=== PATIENT | male | born 1940 | race African-American/Black ===

== ENCOUNTER 2025-04-07 03:44 | Emergency (ER) | payer MEDICARE, SELFPAY ==
[~2025-04-07] VITALS: Ht 180.3 cm; Wt 79.2 kg
[2025-04-07 03:49] VITALS: O2SAT 100
[2025-04-07 04:21] LABS: BASOPHILS % 1.1 % (0.0-2.0); EOSINOPHILS % 3.4 % (0.0-5.0); HEMATOCRIT. 39.4 % (42.0-52.0); HEMOGLOBIN. 12.8 g/dL (14.0-18.0); LYMPHOCYTES % 37.2 % (20.0-50.0); MEAN PLATELET VOLUME 9.2 fl (7.4-10.4); MONOCYTES % 10.9 % (2.0-8.0); NEUTROPHILS % 47.4 % (40.0-76.0); PLATELET 123 x1000/uL (130-400); RED BLOOD CELL COUNT 4.86 mill/uL (4.7-6.1); RED CELL DISTRIBUTION WIDTH 13.7 % (11.6-14.6)
[2025-04-07 04:33] LABS: CREATININE 1.2 mg/dL (0.6-1.3); UREA NITROGEN BLOOD 7 mg/dL (9-23)
[2025-04-07 04:34] LABS: TROPONIN I HIGH SENSITIVITY 18 ng/L (3.0-53)
[2025-04-07 06:26] LABS: ASPARTATE AMINOTRANSFERASE 23 IU/L (<34); BILIRUBIN DIRECT 0.1 mg/dL (<=3.0); BILIRUBIN TOTAL 0.4 mg/dL (0.1-1.0); PROTEIN TOTAL 6.5 g/dL (6.0-8.3)
[2025-04-07 07:17] LABS: INR 0.9
[2025-04-07 08:03] LABS: TROPONIN I HIGH SENSITIVITY 20 ng/L (3.0-53)
[2025-04-07] MEDS: IOHEXOL-350 100 ML BOTTLE ONE (09:48)
[2025-04-07 11:21] VITALS: BP 145/70; PULSE 74; RESP 19; TEMP 36.7; O2SAT 100
== END 2025-04-07 11:24 | disposition left against medical advice (07) ==
LOC: ER 04:59 → CMPBEDREQ 12:15
DX: R07.2 Precordial pain (principal); I10 Essential (primary) hypertension; Z98.890 Other specified postprocedural states
CPT/HCPCS: 99285; 74174; 71275; 71045; 80076; 80048; 83690; 85025; 85379; 85610; 84484; 93005; 36415; Q9967